=== PATIENT | male | born 1995 | race Caucasian/White ===

== ENCOUNTER 2019-05-21 06:47 | Day surgery (SDC) | payer OTHER ==
[2019-05-20 15:49] VITALS: BMI 24.4
[2019-05-21] MEDS ORDERED: LIDOCAINE HCL/PF 2% SDV 5ML VIAL ONE (08:30)
[2019-05-21] MEDS ORDERED: PROPOFOL 20 ML ONE (08:31)
[2019-05-21] MEDS ORDERED: MIDAZOLAM HCL 2 MG/2 ML SINGLE DOSE VIAL ONE (08:31)
--- NOTE | 2019-05-21 09:55 | OP ---
Operative Note - Note: Operative Date: 05/21/19 Pre-Operative Diagnosis: Right renal calculus Operation: ESWL Right Findings: Right renal calculus Post-Operative Diagnosis: Same as Pre-op Surgeon: Mari Evans Anesthesia: General Operative Report Dictated: Yes
[2019-05-21 10:42] VITALS: TEMP 97.5
--- NOTE | 2019-05-21 11:18 | OP ---
DATE OF OPERATION: 05/21/2019 SURGEON: Mari Evans MD ANESTHESIA: General. PREOPERATIVE DIAGNOSIS: Right renal calculus. POSTOPERATIVE DIAGNOSIS: Right renal calculus. PROCEDURE: Extracorporeal shock-wave lithotripsy, right side. FINDINGS: A 9-mm stone noted in the right kidney. DESCRIPTION OF PROCEDURE: Patient in supine position with right side up was prepped and draped in the usual manner. Using x-ray and ultrasound, the stone was localized, and ESWL performed. Patient tolerated the procedure well and left the operating room in a satisfactory condition. Nunu [id number]
[2019-05-21] MEDS ORDERED: ONDANSETRON 4 MG/2 ML VIAL ONE (11:43)
[2019-05-21] MEDS ORDERED: oxyCODONE HCL 5 MG TABLET PO PRN (11:44)
[2019-05-21] MEDS ORDERED: ONDANSETRON 4 MG/2 ML VIAL IVPUSH PRN (11:44)
[2019-05-21 13:56] VITALS: BP 131/83; PULSE 48
== END 2019-05-21 12:45 | disposition home or self-care (01) ==
LOC: JASU-SURG 06:47
PROVIDERS: ATTEND Urology
PROC: 0TF3XZZ Fragmentation in Right Kidney Pelvis, External Approach (ICD-10-PCS; principal; 2019-05-21 09:00)
DX: N20.0 Calculus of kidney (principal)

== ENCOUNTER 2019-06-15 16:26 | Emergency (ER) | payer OTHER ==
[2019-06-15 16:37] VITALS: BMI 25.1
[2019-06-15 17:51] LABS: BASO % 0.4 % (0-2.0); HEMATOCRIT 44.8 % (35.4-49); LYMPH % 30.4 % (8-40); MCH 32.9 pg (25.7-33.7); MCHC 35.7 g/dl (32.0-35.9); MEAN CELL VOLUME 92.1 fl (80-96); MEAN PLT VOLUME 7.2 fl (7.5-11.1); MONO % 9.2 % (3.8-10.2); PLATELET COUNT 284 K/MM3 (134-434); RBC 4.86 M/mm3 (4.00-5.60); RDW 13.8 % (11.9-15.9); WHITE BLOOD COUNT 5.7 K/mm3 (4.0-10.0)
--- NOTE | 2019-06-15 17:56 | PDOC ---
History of Present Illness - General Chief Complaint: Substance Abuse Stated Complaint: CONFUSED Time Seen by Provider: 06/15/19 16:44 History Source: Patient, Family - History of Present Illness Initial Comments: 06/15/19 17:57 Mr. Moeller is a 24 y/o man with no PMH presenting today with ten days of pressured speech, erratic behavior, minimal sleep with acute worsening in mentation today. He has no prior psychiatric history, but has a close family history of bipolar in his sister. He is accompanied by his parents who assist with the history. They report that for the past ten days he has "not been himself". They report that while he is typically very independent, he has been frequently asking to borrow money as well as requesting rides to and from work which is atypical for him. They report that he has not been sleeping for the last several days, and that he has stayed out late at night, often returning at approx 0500 before going to work at 0800. They report that his speech has been very pressured, though he has remained coherent. They deny any reports of suicidal or homicidal ideation in [place]. They are unaware of any drug or alcohol use, but are concerned that he is "involved in something bad", or "in trouble" given his behavior. Mr. Moeller reports that he has been doing "a lot of cocaine" but is unable to elaborate. He reports snorting "a lot" of cocaine but is unable to describe approximately how much. He denies any co-ingestions. He reports mild full body pain. Of note, he reports auditory hallucinations. He is unsure when they began. He reports that he is "not ready" to describe what they say. He denies any suicidal or homicidal ideation. Mother cell phone - [phone] Father cell phone - [phone] Past History - Past Medical History Allergies/Adverse Reactions: Allergies Allergy/AdvReac Type Severity Reaction Status Date / Time No Known Allergies Allergy Verified 06/15/19 16:38 Home Medications: Ambulatory Orders NK [No Known Home Medication] 05/11/19 Anemia: No Asthma: Yes (seasonal as a child) Cancer: No Cardiac Disorders: No CVA: No COPD: No CHF: No Dementia: No Diabetes: No GI Disorders: No Disorders: No HTN: No Hypercholesterolemia: No Liver Disease: No Seizures: No Thyroid Disease: No Other medical history: KIDNEY STONES - Surgical History Abdominal Surgery: No Appendectomy: Yes Cardiac Surgery: No Cholecystectomy: No Lung Surgery: No Neurologic Surgery: No Orthopedic Surgery: No - Immunization History Immunization Up to Date: No - Psycho Social/Smoking Cessation Hx Smoking History: Unknown if ever smoked Have you smoked in the past 12 months: No Number of Cigarettes Smoked Daily: 1 'Breaking Loose' booklet given: 05/21/19 Hx Alcohol Use: Yes Drug/Substance Use Hx: Yes (COCAINE) Substance Use Type: Marijuana Hx Substance Use Treatment: No Review of Systems - Review of Systems Able to Perform ROS?: Yes Comments:: 06/15/19 19:58 ROS: GENERAL/CONSTITUTIONAL: Difficulty controlling voice volume. No fever or chills. No weakness. PSYCH: Auditory hallucinations. Anxiety. HEAD, EYES, EARS, NOSE AND THROAT: No change in vision. No ear pain or discharge. No sore throat. CARDIOVASCULAR: No chest pain or shortness of breath RESPIRATORY: No cough, wheezing, or hemoptysis. GASTROINTESTINAL: No nausea, vomiting, diarrhea or constipation. GENITOURINARY: No dysuria, frequency, or change in urination. MUSCULOSKELETAL: Generalized muscle pain. No joint or muscle swelling. No neck or back pain. SKIN: No rash NEUROLOGIC: No headache, vertigo, loss of consciousness, or change in strength/ sensation. ENDOCRINE: No increased thirst. No abnormal weight change HEMATOLOGIC/LYMPHATIC: No anemia, easy bleeding, or history of blood clots. ALLERGIC/IMMUNOLOGIC: No hives or skin allergy. 06/15/19 20:01 *Physical Exam - Vital Signs Last Vital Signs Temp Pulse Resp BP Pulse Ox 111 H 18 106/77 98 06/15/19 16:31 06/15/19 16:31 06/15/19 16:31 06/15/19 16:31 - Physical Exam Comments: 06/15/19 20:00 PE: GENERAL: Anxious. Awake, alert. PSYCH: Pressured speech. Poor voice volume regulation. HEAD: No signs of trauma, normocephalic, atraumatic EYES: PERRLA, EOMI, sclera anicteric, conjunctiva clear ENT: Auricles normal inspection, hearing grossly normal, nares patent, oropharynx clear without exudates. Moist mucosa NECK: Normal ROM, supple, no lymphadenopathy, JVD, or masses LUNGS: No distress, speaks full sentences, clear to auscultation bilaterally HEART: Regular rate and rhythm, normal S1 and S2, no murmurs, rubs or gallops, peripheral pulses normal and equal bilaterally. ABDOMEN: Soft, nontender, normoactive bowel sounds. No guarding, no rebound. No masses EXTREMITIES : Normal inspection, Normal range of motion, no edema. No clubbing or cyanosis NEUROLOGICAL: Cranial nerves II through XII grossly intact. Normal gait, no focal sensorimotor deficits SKIN: Warm, Dry, normal turgor, no rashes or lesions noted ED Treatment Course - LABORATORY CBC & Chemistry Diagram: 06/15/19 17:33 06/16/19 00:30 - ADDITIONAL ORDERS Additional order review: Laboratory Results 06/15/19 17:03 POC Glucometer 100 06/15/19 17:03 POC Glucometer 100 Medical Decision Making - Medical Decision Making 06/15/19 19:43 24M with family hx bipolar, with recent family stressors, presenting with approx 10 days of pressured speech, minimal to no sleep, erratic behavior per family, reported cocaine use concerning for intoxication vs intoxication uncovering a primary psychiatric disorder/richi. Plan: CBC CMP EKG CK for eval of rhabdo UA Urine tox Acetaminophen Salicylates EtOH level POC Glucose Psychiatry consult Dispo: Pending labs --- POC Glu - 100 EKG - QTc - 410 --- Urine tox - positive for marijuana, otherwise negative Acetaminophen - negative Salicylates - negative EtOH - negative CMP - Cr - 1.1 06/15/19 19:57 Psychiatry at the bedside 06/15/19 20:12 Patient evaluated by psychiatry. Plan for 0700 reassessment given likely intoxication. 06/15/19 21:08 On reassessment, sleeping comfortably in hospital bed. 06/15/19 23:55 Plan for repeat CMP at 1245 to reassess Cr given CK elevation --- repeat CMP - Cr 1.2 CK add on sent Patient medically cleared. Pending psych evaluation at 0700. 06/16/19 02:09 Patient signed out to Dr. Triana on the night team. Discharge - Discharge Information Problems reviewed: Yes Clinical Impression/Diagnosis: Altered mental state Qualifiers: Altered mental status type: unspecified Qualified Code(s): R41.82 - Altered mental status, unspecified Condition: Stable - Follow up/Referral Referrals: Sameer Granado [Primary Care Provider] - - Patient Discharge Instructions - Post Discharge Activity
[2019-06-15 18:15] LABS: PH,URINE 6.5 (5.0-8.0); URINE APPEARANCE CLEAR; URINE BILIRUBIN NEGATIVE (NEGATIVE); URINE COLOR YELLOW; URINE GLUCOSE (UA) NEGATIVE (NEGATIVE); URINE KETONE 1+ (NEGATIVE); URINE LEUK ESTERASE NEGATIVE (NEGATIVE); URINE NITRITE NEGATIVE (NEGATIVE); URINE PROTEIN NEGATIVE (NEGATIVE); URINE UROBILINOGEN 0.2 mg/dL (0.2-1.0)
[2019-06-15 18:26] LABS: ALK PHOS 94 U/L (45-117); ANION GAP 10 MMOL/L (8-16); BILIRUBIN,TOTAL 1.8 mg/dL (0.2-1); BLOOD UREA NITROGEN 10.4 mg/dL (7-18); CALCIUM 9.4 mg/dL (8.5-10.1); CHLORIDE 102 mmol/L (98-107); CO2 23 mmol/L (21-32); CREATININE 1.1 mg/dL (0.55-1.3); GLUCOSE,RANDOM 95 mg/dL (74-106); POTASSIUM 3.7 mmol/L (3.5-5.1); SGOT/AST 45 U/L (15-37); SGPT/ALT 27 U/L (13-61); SODIUM 136 mmol/L (136-145); TOT PROT 8.1 g/dl (6.4-8.2)
[2019-06-15 18:26] LABS: COCAINE, UR NEGATIVE ng/ml (CUTOFF=300); METHADONE, UR NEGATIVE ng/ml (CUTOFF=300); OPIATES, URI NEGATIVE ng/ml (CUTOFF=300); PHENCYCLIDINE,URINE NEGATIVE ng/ml (CUTOFF=25); URINE AMPHETAMINES NEGATIVE ng/ml (CUTOFF=500); URINE BARBITURATES NEGATIVE ng/ml (CUTOFF=200); URINE BENZODIAZEPINES NEGATIVE ng/ml (CUTOFF=200)
--- NOTE | 2019-06-15 18:52 | PDOC ---
Documentation entered by Celso Downing SCRIBE, acting as scribe for Fermin Garcia MD. Fermin Garcia MD: This documentation has been prepared by the Chang antunez Daniel, SCRIBE, under my direction and personally reviewed by me in its entirety. I confirm that the documentation accurately reflects all work, treatment, procedures, and medical decision making performed by me. Attending Attestation - Resident Resident Name: Maksim Bocanegra - ED Attending Attestation I have performed the following: I have examined & evaluated the patient, The case was reviewed & discussed with the resident, I agree w/resident's findings & plan, Exceptions are as noted - HPI HPI: 06/15/19 17:28 The patient is a 24 year old male with no past medical history here today for evaluation of auditory hallucinations s/p cocaine use. The patient reports that he snorted cocaine today around 2:30 PM today. Patient has no known psychotic episodes in the past. Patient denies headache, lightheadedness. Denies fever, chills. Denies chest pain, shortness of breath. Denies nausea, vomiting, diarrhea, abdominal pain. Allergies: NKA PCP: Sameer Granado - Physicial Exam PE: 06/15/19 17:28 Vitals: Triage vital signs reviewed General Appearance: No acute distress, well nourished, well developed Head: Atraumatic Eyes: Pupils equal reactive round, extraocular movement intact Cardiac: Regular rate and rhythm, no murmurs, no rubs, no gallops Lungs: Clear to auscultation bilateral, good air movement bilaterally Abdomen: Soft, nondistended, normal bowel sounds, nontender to palpation Genitourinary: Rectal: Exam deferred Extremities: Full range of motion to all extremities, no cyanosis, clubbing, or edema Skin: Warm and dry, no rashes or lesions, no rash, no petechiae Neuro: AOX3; Cranial Nerves 2-12 grossly intact, Strength intact to all extremities, Sensation intact to all extremities, gait normal Psych: Pressured Speech, endorses auditory hallucinations, restless, - Medical Decision Making 06/15/19 18:51 24 years old with no known psychiatric history presents to the emergency department with very pressured speech agitation appears to be responding to internal stimuli endorses recent drug use and multiple stressors at home We will check labs EKG psychiatry consultation U tox observe and reassess Reevaluation labs EKG within normal limits patient medically clear patient pending psychiatric evaluation not suicidal at this time 06/15/19 20:57 Reevaluation: Patient seen and evaluated by psychiatry patient still with hallucinations agitation no suicidal ideation plan is to provide anxiolysis with Haldol Andres allow patient to sleep overnight and to metabolize from any drugs that were used today psychiatry will reevaluate the patient at 7 AM to determine if any acute psychologic interventions are needed
[2019-06-15] MEDS ORDERED: SODIUM CHLORIDE 0.9% 500 ML INFUS.BAG IV ONE (19:49)
[2019-06-15] MEDS ORDERED: HALOPERIDOL DECANOATE 500 MG/5ML MDV IM ONE (20:09)
--- NOTE | 2019-06-15 20:14 | CON.PSY ---
Psychiatry Consult Chief Complaint: Asked to see Mr. Moeller for rule out first psycotic episode. Family hx of Bipolar disorder History of Present Problem: Hx obtained from parents from patient and medical records Patient sates that he has had no psychiatric hospitalization, No hx of psychiatric meds No hx of suicidal/homicidal ideation- He admitted that he has been using drugs- crack/cocaine, MJ ETOH and esctasy. He is awake but his responses are delayed. 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 Lately, his father stated that he has been spending all his money on 'drugs'. Denies suicidal/homicidal ideation Symptoms: reports: Depressed Mood, Impaired Concentration - Family Member Sister Hx Family Depression: Yes Hx Family Bipolar Disorder: Yes - Allergies Allergies: Allergies Allergy/AdvReac Type Severity Reaction Status Date / Time No Known Allergies Allergy Verified 06/15/19 16:38 - Current Living Status Usual Living Arrangement: With Parent - Current Mental Status Evaluation Appearance: Bizarre (looks space out and wide eyed.) - Mood Mood: Depressed - Speech/Language Expressive: Delayed Receptive: Age Appropriate Comprehension of Spoken Words - Psychomotor Activity Psychomotor Activity: Slowed - Thought Content Type: Auditory (not at this time but does endorse hearing voices as recent as this pm) - Cognition Attention: Diminished Orientation: Person, Place Memory, Short Term: 2/3 - Suicidal Ideation Suicidal Ideation: No - Homicidal Ideation Homicidal Ideation: No Assessment/Plan Patient may have an underlylilng psychaiatric history but at this time it is difficult to disentangle due to his current drug us He is willing to go to Detox. Shanice Jj called and he can go on Monday morning In the meatime, he will be here overnight to monitor and due to safety reasons Will follow again in am ER Attending saw patient and Haldol 5 mgs /2 mgs Ativan ordered for tonight
[2019-06-15] MEDS ORDERED: HALOPERIDOL LACTATE 5 MG/ML ONE (20:29)
[2019-06-15] MEDS ORDERED: LORazepam 2 MG/ML SDV VIAL ONE (20:30)
[2019-06-16 01:16] LABS: ALBUMIN 3.7 g/dl (3.4-5.0); BILIRUBIN,TOTAL 1.9 mg/dL (0.2-1); BLOOD UREA NITROGEN 10.9 mg/dL (7-18); CALCIUM 8.3 mg/dL (8.5-10.1); CREATININE 1.2 mg/dL (0.55-1.3); TOT PROT 6.2 g/dl (6.4-8.2)
--- NOTE | 2019-06-16 02:08 | PDOC ---
*Physical Exam - Vital Signs Last Vital Signs Temp Pulse Resp BP Pulse Ox 98.4 F 51 L 16 112/58 L 100 06/16/19 00:05 06/16/19 00:05 06/16/19 00:05 06/16/19 00:05 06/16/19 00:05 ED Treatment Course - LABORATORY CBC & Chemistry Diagram: 06/15/19 17:33 06/16/19 00:30 - ADDITIONAL ORDERS Additional order review: Laboratory Results 06/16/19 06/15/19 06/15/19 00:30 18:12 18:12 Sodium 140 Potassium 4.0 Chloride 108 H Carbon Dioxide 27 Anion Gap 5 L BUN 10.9 Creatinine 1.2 Est GFR (CKD-EPI)AfAm 98.89 Est GFR (CKD-EPI)NonAf 85.32 POC Glucometer Random Glucose 78 Calcium 8.3 L Total Bilirubin 1.9 H AST 36 ALT 23 Alkaline Phosphatase 73 Creatine Kinase Creatine Kinase Index CK-MB (CK-2) Total Protein 6.2 L Albumin 3.7 Urine Color Yellow Urine Appearance Clear Urine pH 6.5 Ur Specific [place] 1.013 Urine Protein Negative Urine Glucose (UA) Negative Urine Ketones 1+ H Urine Blood Negative Urine Nitrite Negative Urine Bilirubin Negative Urine Urobilinogen 0.2 Ur Leukocyte Esterase Negative Salicylates Opiates Screen Negative Methadone Screen Negative Acetaminophen Barbiturate Screen Negative Phencyclidine Screen Negative Ur Amphetamines Screen Negative MDMA (Ecstasy) Screen Negative Benzodiazepines Screen Negative Cocaine Screen Negative U Marijuana (THC) Screen Positive A* Alcohol, Quantitative 06/15/19 06/15/19 06/15/19 17:33 17:23 17:03 Sodium 136 Potassium 3.7 Chloride 102 Carbon Dioxide 23 Anion Gap 10 BUN 10.4 Creatinine 1.1 Est GFR (CKD-EPI)AfAm 109.86 Est GFR (CKD-EPI)NonAf 94.79 POC Glucometer 100 Random Glucose 95 Calcium 9.4 Total Bilirubin 1.8 H AST 45 H ALT 27 Alkaline Phosphatase 94 Creatine Kinase 1104 H Creatine Kinase Index 1.1 CK-MB (CK-2) 12.4 H Total Protein 8.1 Albumin 5.0 Urine Color Urine Appearance Urine pH Ur Specific [place] Urine Protein Urine Glucose (UA) Urine Ketones Urine Blood Urine Nitrite Urine Bilirubin Urine Urobilinogen Ur Leukocyte Esterase Salicylates < 1.7 L Opiates Screen Methadone Screen Acetaminophen <2.0 Barbiturate Screen Phencyclidine Screen Ur Amphetamines Screen MDMA (Ecstasy) Screen Benzodiazepines Screen Cocaine Screen U Marijuana (THC) Screen Alcohol, Quantitative < 3.0 06/15/19 06/15/19 17:33 17:03 RBC 4.86 MCV 92.1 MCHC 35.7 RDW 13.8 MPV 7.2 L Neutrophils % 60.0 D Lymphocytes % 30.4 D Monocytes % 9.2 Eosinophils % 0.0 D Basophils % 0.4 POC Glucometer 100 - Medications Given in the ED: ED Medications Discontinued Medications Generic Name Dose Route Start Last Admin Trade Name Freq PRN Reason Stop Dose Admin Haloperidol Decanoate 5 mg 06/15/19 20:09 06/15/19 20:37 Haldol IM 06/15/19 20:10 5 mg ONCE ONE Administration Lorazepam 1 mg 06/15/19 18:11 06/15/19 20:26 Ativan Injection - IVPUSH 06/15/19 18:12 Not Given ONCE ONE Lorazepam 2 mg 06/15/19 20:08 06/15/19 20:38 Ativan Injection - IVPUSH 06/15/19 20:09 2 mg ONCE ONE Administration Sodium Chloride 2,000 ml 06/15/19 19:49 06/15/19 20:07 Normal Saline - IV 06/15/19 19:50 2,000 ml ONCE ONE Administration Medical Decision Making - Medical Decision Making 06/16/19 02:02 Pt received on sign out from Dr. Bocanegra. Briefly, pt with no medical or psych PMH presents with acute change in behavior over the past 10 days. Pressured speech. Cocaine, ecstasy, and marijuana use. Fam hx of bipolar. Current life stressors. Given 5 Haldol and 2 ativan. Medically cleared. Pending psych clearance at 7am. 06/16/19 06:08 Pt reassessed. Resting comfortably in bed. Awaiting psych re-evaluation this morning. 06/16/19 0700 Pt signed out to Dr. Martines. Discharge - Discharge Information Problems reviewed: Yes Clinical Impression/Diagnosis: Altered mental state Qualifiers: Altered mental status type: unspecified Qualified Code(s): R41.82 - Altered mental status, unspecified Condition: Stable Disposition: HOME - Follow up/Referral Referrals: Sameer Granado [Primary Care Provider] - Kong Rebollar MD [Staff Physician] - - Patient Discharge Instructions Additional Instructions: You were evaluated for altered mental status in the setting of substance use. Your symptoms have since resolved, and you have been stably resting here overnight. Our psychiatry team has evaluated you, and together we have agreed that you can return home today, then go to inpatient rehabilitation on Monday. The location is: [place] [address] At home, please eat a well-balanced diet and continue to rest. If you experience any anxiety, desire to harm yourself or others, or chest pain, dizziness, shortness of breath, abdominal pain, or any other new or concerning symptoms, please return to the emergency room. - Post Discharge Activity Work/Back to School Note: Back to Work
--- NOTE | 2019-06-16 07:54 | PDOC ---
*Physical Exam - Vital Signs Last Vital Signs Temp Pulse Resp BP Pulse Ox 98.1 F 53 L 15 83/45 L 100 06/16/19 07:06 06/16/19 07:06 06/16/19 07:06 06/16/19 07:06 06/16/19 07:06 - Physical Exam General Appearance: Yes: Nourished, Appropriately Dressed, Other (observed ambulating, speaking to nursing staff appropriately, in no acute distress) HEENT: positive: EOMI, LANRE, Normal Voice. negative: Scleral Icterus (R), Scleral Icterus (L) Neck: negative: Tender ED Treatment Course - LABORATORY CBC & Chemistry Diagram: 06/15/19 17:33 06/16/19 00:30 - ADDITIONAL ORDERS Additional order review: Laboratory Results 06/16/19 00:30 Sodium 140 Potassium 4.0 Chloride 108 H Carbon Dioxide 27 Anion Gap 5 L BUN 10.9 Creatinine 1.2 Est GFR (CKD-EPI)AfAm 98.89 Est GFR (CKD-EPI)NonAf 85.32 Random Glucose 78 Calcium 8.3 L Total Bilirubin 1.9 H AST 36 ALT 23 Alkaline Phosphatase 73 CK-MB (CK-2) 9.5 H Total Protein 6.2 L Albumin 3.7 06/15/19 06/15/19 17:33 17:03 RBC 4.86 MCV 92.1 MCHC 35.7 RDW 13.8 MPV 7.2 L Neutrophils % 60.0 D Lymphocytes % 30.4 D Monocytes % 9.2 Eosinophils % 0.0 D Basophils % 0.4 POC Glucometer 100 - Medications Given in the ED: ED Medications Discontinued Medications Generic Name Dose Route Start Last Admin Trade Name Nura PRN Reason Stop Dose Admin Haloperidol Decanoate 5 mg 06/15/19 20:09 06/15/19 20:37 Haldol IM 06/15/19 20:10 5 mg ONCE ONE Administration Lorazepam 1 mg 06/15/19 18:11 06/15/19 20:26 Ativan Injection - IVPUSH 06/15/19 18:12 Not Given ONCE ONE Lorazepam 2 mg 06/15/19 20:08 06/15/19 20:38 Ativan Injection - IVPUSH 06/15/19 20:09 2 mg ONCE ONE Administration Sodium Chloride 2,000 ml 06/15/19 19:49 06/15/19 20:07 Normal Saline - IV 06/15/19 19:50 2,000 ml ONCE ONE Administration Medical Decision Making - Medical Decision Making 06/16/19 07:53 Signed out to me by Dr. Triana. Came in intoxicated on cocaine, evaluation performed, medically cleared at this time. Family did not wish for patient to return home. Has been observed overnight, no incidents. Sleeping comfortably in room, awakens and is sleepy but alert. Psych to evaluate this morning. 06/16/19 08:50 Spoke to Kirsty Segovia with Psych, confirms she will be seeing patient later this morning. 06/16/19 11:32 Psychiatry evaluated with parents at bedside. Will be able to return home today, parents will bring to [facility] on Monday. Stable to be discharged home at this time. Discharge - Discharge Information Problems reviewed: Yes Clinical Impression/Diagnosis: Altered mental state Qualifiers: Altered mental status type: unspecified Qualified Code(s): R41.82 - Altered mental status, unspecified Condition: Stable Disposition: HOME - Admission No - Follow up/Referral Referrals: Sameer Granado [Primary Care Provider] - Kong Rebollar MD [Staff Physician] - - Patient Discharge Instructions Additional Instructions: You were evaluated for altered mental status in the setting of substance use. Your symptoms have since resolved, and you have been stably resting here overnight. Our psychiatry team has evaluated you, and together we have agreed that you can return home today, then go to inpatient rehabilitation on Monday. The location is: [place] [address] At home, please eat a well-balanced diet and continue to rest. If you experience any anxiety, desire to harm yourself or others, or chest pain, dizziness, shortness of breath, abdominal pain, or any other new or concerning symptoms, please return to the emergency room. - Post Discharge Activity Work/Back to School Note: Back to Work
--- NOTE | 2019-06-16 11:19 | PN ---
Progress Note (short form) - Note Progress Note: Patient was seen this am as a follow up from last pm. He reported a restful night and is awake, alert and fully oriented x3 and to situation. Me. Sunni wants to go home and follow up with outpatient substance abuse and/ or inpatient. He was given information on [address] [place] here at [facility]. Spoke to detox center last night and was told that he can come on Monday morning. Also, he seems to be waxing and waning about this decision. Plan Based on his improved mental status and based on his wishes He can be discharged home this am
[2019-06-16 11:52] VITALS: BP 131/79; PULSE 102; TEMP 97.8
--- NOTE | 2019-06-16 17:02 | EKG ---
Test Reason : Blood Pressure : / mmHG Vent. Rate : 078 BPM Atrial Rate : 078 BPM P-R Int : 134 ms QRS Dur : 104 ms QT Int : 372 ms P-R-T Axes : 048 041 051 degrees QTc Int : 424 ms NORMAL SINUS RHYTHM RIGHT BUNDLE BRANCH BLOCK NO PREVIOUS ECGS AVAILABLE Confirmed by FEDERICO HIGGINS MD ([id number]) on 06/16/2019 5:02:14 PM Referred By: Confirmed By:FEDERICO HIGGINS MD
== END 2019-06-16 12:42 | disposition home or self-care (01) ==
LOC: JER 16:26
PROC: 3E023NZ Introduction of Analgesics, Hypnotics, Sedatives into Muscle, Percutaneous Approach (ICD-10-PCS; principal; 2019-06-15)
PROC: 3E033NZ Introduction of Analgesics, Hypnotics, Sedatives into Peripheral Vein, Percutaneous Approach (ICD-10-PCS; 2019-06-15)
DX: R41.82 Altered mental status, unspecified (principal); F14.10 Cocaine abuse, uncomplicated
CPT/HCPCS: 36415; 80053; 80307; 81003; 82550; 82553; 82962; 85025; 93005; 93010; 96372; 96374; 99283-25

== ENCOUNTER 2023-08-13 16:01 | Emergency (ER) | payer BC, OTHER ==
[2023-08-13 16:27] VITALS: BMI 26.4
[2023-08-13] MEDS ORDERED: ACETAMINOPHEN 500 MG TABLET (FP) PO ONE (17:44)
[2023-08-13] MEDS ORDERED: IBUPROFEN 400 MG TABLET (FP) PO ONE ×2 (17:44→17:56)
[2023-08-13] MEDS ORDERED: ACETAMINOPHEN 500 MG TABLET (FP) ONE (17:56)
[2023-08-13 18:52] VITALS: BP 113/71; PULSE 105; RESP 16; TEMP 102.9
[2023-08-13] MEDS ORDERED: AMOXICILLIN 500 MG CAPSULE (FP) PO ONE (18:53)
[2023-08-13] MEDS ORDERED: AMOXICILLIN 250 MG CAPSULE ONE (19:01)
== END 2023-08-13 19:46 | disposition home or self-care (01) ==
LOC: JERFT 16:01 → JER 16:01 → JERFT 19:46
DX: J03.90 Acute tonsillitis, unspecified (principal); R50.9 Fever, unspecified; R00.0 Tachycardia, unspecified; Z20.822 Contact with and (suspected) exposure to COVID-19
CPT/HCPCS: 0241U-QW; 87651; 99283-25

== ENCOUNTER 2023-08-14 15:48 | Emergency (ER) | payer BC ==
[2023-08-14] MEDS ORDERED: IBUPROFEN 600 MG TABLET (FP) PO ONE ×2 (16:31→17:30)
[2023-08-14 17:01] VITALS: BP 122/71; PULSE 73; RESP 16; TEMP 102.5; BMI 26.4
[2023-08-14 17:35] LABS: BASO % 0.4 % (0-2.0); HEMATOCRIT 41.2 % (35.4-49); HEMOGLOBIN 14.7 GM/dL (11.7-16.9); LYMPH % 14.6 % (8-40); MCH 32.4 pg (25.7-33.7); MCHC 35.6 g/dl (32.0-35.9); MEAN PLT VOLUME 7.3 fl (7.5-11.1); MONO % 12.3 % (3.8-10.2); NEUT % 72.7 % (42.8-82.8); PLATELET COUNT 170 10^3/uL (134-434); RBC 4.53 M/mm3 (4.00-5.60); RDW 13.1 % (11.9-15.9); WHITE BLOOD COUNT 10.4 K/mm3 (4.0-10.0)
[2023-08-14 17:57] LABS: POTASSIUM 3.8 mmol/L (3.5-5.1)
[2023-08-14 17:58] LABS: BLOOD UREA NITROGEN 15.6 mg/dL (7-18); CALCIUM 8.4 mg/dL (8.5-10.1)
[2023-08-14 18:02] LABS: CREATININE 1.3 mg/dL (0.55-1.3)
[2023-08-14] MEDS ORDERED: DEXAMETHASONE SOD PHOSPHATE 10 MG/1 ML VIAL PO ONE (18:16)
[2023-08-14] MEDS ORDERED: DEXAMETHASONE SOD PHOSPHATE 10 MG/1 ML VIAL ONE (18:22)
== END 2023-08-14 18:25 | disposition home or self-care (01) ==
LOC: JER 15:48 → JERFT 15:48
PROC: 3E033GC Introduction of Other Therapeutic Substance into Peripheral Vein, Percutaneous Approach (ICD-10-PCS; principal; 2023-08-14)
DX: J02.9 Acute pharyngitis, unspecified (principal); R50.9 Fever, unspecified
CPT/HCPCS: 36415; 80048; 85025; 86308; 87070; 87651; 99284-25; J1100

== ENCOUNTER 2023-08-21 18:16 | Emergency (ER) | payer BC ==
[2023-08-21 18:54] VITALS: BP 126/86; PULSE 88; RESP 18; TEMP 98.7; BMI 25.7
[2023-08-21] MEDS ORDERED: DOXYCYCLINE HYCLATE 100 MG CAPSULE PO ONE ×2 (18:59→19:29)
== END 2023-08-21 19:52 | disposition home or self-care (01) ==
LOC: JER 18:16 → JERFT 18:16
DX: A54.5 Gonococcal pharyngitis (principal)
CPT/HCPCS: 99284-25